=== PATIENT | female | born 1985 | race Caucasian/White ===

== ENCOUNTER 2017-02-05 01:17 | Emergency (ER) | payer BC ==
[2017-02-05] MEDS ORDERED: Sodium Chloride 0.9% 1,000 ML IV SCH (02:00)
[2017-02-05] MEDS ORDERED: GI Cocktail Oral Solution 30 ML ONE (02:40)
[2017-02-05] MEDS ORDERED: Omeprazole 20 MG Cap.CR ONE (02:45)
[2017-02-05] MEDS ORDERED: Ciprofloxacin 500 MG Tab ONE (02:45)
[2017-02-05 03:05] VITALS: BP 115/74
--- NOTE | 2017-02-05 03:30 | EDM.PDOC ---
ED HPI GENERAL MEDICAL PROBLEM - General Chief Complaint: Abdominal Pain Stated Complaint: ABDOMINAL PAIN Time Seen by Provider: 02/05/17 01:44 Source of Information: Reports: Patient History Limitations: Reports: No Limitations - History of Present Illness INITIAL COMMENTS - FREE TEXT/NARRATIVE: Patient is a 32 year old woman with a history of hysterectomy and GERD who has had epigastric abdominal pain in the past. Today she has had a sore throat and ear pain along with some mild fever and chills. She was in bed tonight and when she laid down she had a severe, sharp epigastric pain that did not radiate. It made her nauseated and she did vomit. The pain was 9/10. The pain has gotten better after coming to the ED and now it is in the 4-5/10 range and she does not want any pain medication at this time. She has had increased frequency of urination today and bilateral flank pain. She had similar pain about 10 days ago and was seen near [place], [place]. She had a dilated ureter there and is set up to have further testing and will see a urologist. The pain is improving in the ED and with a GI cocktail the pain went to to a 1-2/10 level. 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 Abdomen Pain Score (Numeric/FACES): 6 - Related Data Allergies Allergy/AdvReac Type Severity Reaction Status Date / Time shellfish derived Allergy Other Verified 02/05/17 01:42 Past Medical History Respiratory History: Reports: Asthma Gastrointestinal History: Reports: GERD [employer]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: Dysfunctional Uterine Bleeding, Other OB/BYN History: Section, Hysterectomy Musculoskeletal History: Reports: Back Pain, Chronic, Fibromyalgia - Infectious Disease History Infectious Disease History: Reports: Chicken Pox - Past Surgical History GI Surgical History: Reports: None Social & Family History - Tobacco Use Smoking Status *Q: Never Smoker Second Hand Smoke Exposure: No - Caffeine Use Caffeine Use: Reports: Coffee, Soda, Tea - Recreational Drug Use Recreational Drug Use: No ED ROS GENERAL - Review of Systems Review Of Systems: See Below Constitutional: Reports: Fever, Chills HEENT: Reports: Ear Pain, Throat Pain Respiratory: Reports: No Symptoms Cardiovascular: Reports: No Symptoms Endocrine: Reports: No Symptoms GI/Abdominal: Reports: Abdominal Pain (In Epigastric area along with bilateral flank pain off and on during the day.), Nausea, Vomiting : Reports: Flank Pain, Frequency Musculoskeletal: Reports: No Symptoms Skin: Reports: No Symptoms Neurological: Reports: No Symptoms Psychiatric: Reports: No Symptoms Hematologic/Lymphatic: Reports: No Symptoms Immunologic: Reports: No Symptoms ED EXAM, GI/ABD - Physical Exam Exam: See Below Exam Limited By: No Limitations General Appearance: Alert, WD/WN, No Apparent Distress Eyes: Bilateral: Normal Appearance, EOMI Ears: Other (Right TM is a little dull with superior erythema.) Nose: Normal Inspection, Normal Mucosa, No Blood Throat/Mouth: Normal Inspection, Normal Lips, Normal Teeth, Normal Gums, Normal Oropharynx, Normal Voice, No Airway Compromise Head: Atraumatic, Normocephalic Neck: Normal Inspection, Supple, Non-Tender, Full Range of Motion Respiratory/Chest: No Respiratory Distress, Lungs Clear, Normal Breath Sounds, No Accessory Muscle Use, Chest Non-Tender Cardiovascular: Normal Peripheral Pulses, Regular Rate, Rhythm, No Edema, No Gallop, No JVD, No Murmur, No Rub GI/Abdominal Exam: Normal Bowel Sounds, Soft, No Organomegaly, No Distention, No Abnormal Bruit, No Mass, Pelvis Stable, Tender (Minimal tenderness in the epigastric region on palpation. Pain improved with GI cocktail to a 1-2/10.) Rectal (Female) Exam: Deferred Back Exam: Normal Inspection, Full Range of Motion, NT Extremities: Normal Inspection, Normal Range of Motion, Non-Tender, Normal Capillary Refill, No Pedal Edema Neurological: Alert, Oriented, CN II-XII Intact, Normal Cognition, Normal Gait, Normal Reflexes, No Motor/Sensory Deficits Psychiatric: Normal Affect, Normal Mood Skin Exam: Warm, Dry, Intact, Normal Color, No Rash Lymphatic: No Adenopathy Course - Vital Signs Text/Narrative:: Patient had an uneventful ED course. She was given a liter of Normal Saline and the GI cocktail and that made her feel much better. Her labs showed that her white blood count was elevated to over 20,000 and she had Hematuria in the Urine. Her CT showed diverticula, constipation and a surgically absent uterus but was otherwise normal. She felt much better and the pain was down to a tolerable 1-2/10 and she wanted to go home. She will follow up with her physicians in [place] next week and will see the Urologist for the blood in the urine and the pain she is having. She will return here to the ED if the pain returns before going home to [place]. She will be treated with Cipro 500 mg po bid x 10 days for a right serous otitis media or early otitis media. She will also take Omeprazole 20 mg po q day for GERD. Last Recorded V/S: Last Vital Signs Temp 36.9 C 02/05/17 01:30 Pulse 82 02/05/17 01:30 Resp 16 02/05/17 01:30 BP 115/74 02/05/17 01:30 Pulse Ox 99 02/05/17 01:30 - Orders/Labs/Meds Orders: Active Orders 24 hr Category Date Time Status Abdomen Pelvis wo Cont [CT] Stat Exams 02/05/17 01:47 Taken Sodium Chloride 0.9% [Normal Saline] 1,000 ml Med 02/05/17 02:00 Active IV ASDIRECTED Medication Orders Sodium Chloride (Normal Saline) 1,000 mls @ 999 mls/hr IV ASDIRECTED JORI Last Admin: 02/05/17 02:35 Dose: 999 mls/hr Labs: Laboratory Tests 02/05/17 02/05/17 02/05/17 Range/Units 02:00 02:00 02:00 WBC 20.9 H* (4.0-11.0) K/uL RBC 4.25 (3.80-5.80) M/uL Hgb 12.9 (11.5-16.5) g/dL Hct 36.8 L (37.0-47.0) % MCV 87 (76-96) fL MCH 30.4 (27.0-32.0) pg MCHC 35.1 H (31.0-35.0) g/dL RDW 12.2 (11.0-16.0) % Plt Count 218 (150-500) K/uL MPV 10.7 H (6.0-10.0) fL Neut % (Auto) 93.0 H (45.0-70.0) % Lymph % (Auto) 2.3 L (20.0-40.0) % [place] % (Auto) 4.6 (3.0-10.0) % Eos % (Auto) 0.0 L (1.0-5.0) % Baso % (Auto) 0.1 (0.0-0.5) % Neut # (Auto) 19.42 H (2.00-7.50) K/uL Lymph # (Auto) 0.49 L (1.50-4.00) K/uL [place] # (Auto) 0.96 H (0.20-0.80) K/uL Eos # (Auto) 0.01 L (0.04-0.40) K/uL Baso # (Auto) 0.03 (0.02-0.10) K/uL Sodium 135 L (136-145) mmol/L Potassium 3.8 (3.5-5.1) mmol/L Chloride 101 (98-107) mmol/L Carbon Dioxide 24.3 (21.0-32.0) mmol/L Anion Gap 13.5 (5.0-15.0) mmol/L BUN 11 (8-26) mg/dL Creatinine 0.83 (0.55-1.02) mg/dL Est Cr Clr Drug Dosing TNP Estimated GFR (MDRD) > 60 (>60) MLS/MIN BUN/Creatinine Ratio 13.3 (6-25) Glucose 115 H (74-100) mg/dL Calcium 9.0 (8.5-10.1) mg/dL Total Bilirubin 1.3 H (0.0-1.0) mg/dL AST 15 (15-37) U/L ALT 18 (12-78) U/L Alkaline Phosphatase 65 (46-116) U/L Total Protein 7.3 (6.4-8.2) g/dL Albumin 3.7 (3.4-5.0) g/dL Globulin 3.6 (2.2-4.2) g/dL Albumin/Globulin Ratio 1.0 (0.8-2.0) HCG, Qual Negative (NEGATIVE) Urine Color Urine Appearance (CLEAR) Urine pH (5.0-8.0) Ur Specific [place] (1.003-1.030) Urine Protein (NEGATIVE) mg/dL Urine Glucose (UA) (NEGATIVE) mg/dL Urine Ketones (NEGATIVE) mg/dL Urine Occult Blood (NEGATIVE) Urine Nitrite (NEGATIVE) Urine Bilirubin (NEGATIVE) Urine Urobilinogen (0.2-1.0) E.U./dL Ur Leukocyte Esterase (NEGATIVE) Urine RBC /HPF Urine WBC /HPF Ur Squamous Epith Cells /HPF Urine Bacteria /HPF 02/05/17 Range/Units 02:40 WBC (4.0-11.0) K/uL RBC (3.80-5.80) M/uL Hgb (11.5-16.5) g/dL Hct (37.0-47.0) % MCV (76-96) fL MCH (27.0-32.0) pg MCHC (31.0-35.0) g/dL RDW (11.0-16.0) % Plt Count (150-500) K/uL MPV (6.0-10.0) fL Neut % (Auto) (45.0-70.0) % Lymph % (Auto) (20.0-40.0) % [place] % (Auto) (3.0-10.0) % Eos % (Auto) (1.0-5.0) % Baso % (Auto) (0.0-0.5) % Neut # (Auto) (2.00-7.50) K/uL Lymph # (Auto) (1.50-4.00) K/uL [place] # (Auto) (0.20-0.80) K/uL Eos # (Auto) (0.04-0.40) K/uL Baso # (Auto) (0.02-0.10) K/uL Sodium (136-145) mmol/L Potassium (3.5-5.1) mmol/L Chloride (98-107) mmol/L Carbon Dioxide (21.0-32.0) mmol/L Anion Gap (5.0-15.0) mmol/L BUN (8-26) mg/dL Creatinine (0.55-1.02) mg/dL Est Cr Clr Drug Dosing Estimated GFR (MDRD) (>60) MLS/MIN BUN/Creatinine Ratio (6-25) Glucose (74-100) mg/dL Calcium (8.5-10.1) mg/dL Total Bilirubin (0.0-1.0) mg/dL AST (15-37) U/L ALT (12-78) U/L Alkaline Phosphatase (46-116) U/L Total Protein (6.4-8.2) g/dL Albumin (3.4-5.0) g/dL Globulin (2.2-4.2) g/dL Albumin/Globulin Ratio (0.8-2.0) HCG, Qual (NEGATIVE) Urine Color Yellow Urine Appearance Clear (CLEAR) Urine pH 7.0 (5.0-8.0) Ur Specific [place] 1.015 (1.003-1.030) Urine Protein Negative (NEGATIVE) mg/dL Urine Glucose (UA) Negative (NEGATIVE) mg/dL Urine Ketones 40 H (NEGATIVE) mg/dL Urine Occult Blood Trace-intact H (NEGATIVE) Urine Nitrite Negative (NEGATIVE) Urine Bilirubin Negative (NEGATIVE) Urine Urobilinogen 0.2 (0.2-1.0) E.U./dL Ur Leukocyte Esterase Negative (NEGATIVE) Urine RBC 0-5 H /HPF Urine WBC 0-5 H /HPF Ur Squamous Epith Cells Few /HPF Urine Bacteria Rare /HPF Meds: Medications Generic Name Dose Route Start Last Admin Trade Name Radames PRN Reason Stop Dose Admin Sodium Chloride 1,000 mls @ 999 mls/hr 02/05/17 02:00 02/05/17 02:35 Normal Saline IV 999 mls/hr ASDIRECTED JORI Administration Departure - Departure Time of Disposition: 03:42 Disposition: Home, Self-Care 01 Condition: Good Clinical Impression: UTI (urinary tract infection), GERD (gastroesophageal reflux disease), Diverticulosis, Constipation - Discharge Information Instructions: Nausea and Vomiting, Adult, [id number], Constipation, Adult, [id number] Forms: ED Department Discharge, ED Return to Work/School Form - My Orders Last 24 Hours: My Active Orders 02/05/17 01:47 Abdomen Pelvis wo Cont [CT] Stat 02/05/17 02:00 Sodium Chloride 0.9% [Normal Saline] 1,000 ml IV ASDIRECTED - Assessment/Plan Last 24 Hours: My Active Orders 02/05/17 01:47 Abdomen Pelvis wo Cont [CT] Stat 02/05/17 02:00 Sodium Chloride 0.9% [Normal Saline] 1,000 ml IV ASDIRECTED
--- NOTE | 2017-02-07 08:28 | CT ---
DATE OF SERVICE: 02/05/17 CLINICAL DATA: Abdominal pain UNENHANCED ABDOMEN AND PELVIC CT: Multislice acquisition through the abdomen and pelvis without IV or oral contrast was performed. No priors. The lung bases are clear. There is a small hiatal hernia. The unenhanced liver appears normal. The gallbladder appears normal. The spleen appears normal. The pancreas appears normal. The right and left adrenals appear normal. The right and left kidneys appear normal. No nephrocalcinosis or nephrolithiasis. No hydronephrosis or hydroureter. The bladder is partially fluid-filled and appears normal. The patient is status post hysterectomy. There are low density lesions in both ovaries consistent with bilateral ovarian cysts. The appendix is not visualized. No evidence of appendicitis. There is a moderate amount of stool present throughout the colon. No free air. No free fluid. No dilated loops of bowel. No adenopathy. No aortic aneurysm. There is a small umbilical hernia containing fat. IMPRESSION: No acute abnormalities. Moderate amount of stool noted throughout the colon. Other findings as discussed above. [id number] [facility]
== END 2017-02-05 03:42 | disposition home or self-care (01) ==
LOC: LB.ED 01:17
DX: K57.90 Diverticulosis of intestine, part unspecified, without perforation or abscess without bleeding (principal); K59.00 Constipation, unspecified; K21.9 Gastro-esophageal reflux disease without esophagitis; Z90.710 Acquired absence of both cervix and uterus; J45.909 Unspecified asthma, uncomplicated; N39.0 Urinary tract infection, site not specified; M79.7 Fibromyalgia
CPT/HCPCS: 36415; 74176; 80053; 81001; 84703; 85025; 96360; 99284; A9270; J7040